=== PATIENT | female | born 2000 | race Caucasian/White ===

== ENCOUNTER 2021-08-02 21:11 | Outpatient (CLI) | payer OTHER | END 2021-08-03 00:16 | disposition home or self-care (01) | LOC: GENOP 21:11 | DX: O99.891 Other specified diseases and conditions complicating pregnancy (principal); R10.2 Pelvic and perineal pain; Z3A.34 34 weeks gestation of pregnancy | CPT/HCPCS: 59025; 81001; 96360; 96361; J7121 ==

== ENCOUNTER 2021-09-06 16:23 | Inpatient (IN) | payer OTHER ==
[~2021-09-06] VITALS: Ht 167.6 cm; Wt 88.9 kg
[2021-09-06 17:04] LABS: HEMOGLOBIN 12.2 gm/dl (12.3-15.3); RED BLOOD COUNT 4.25 M/UL (4.00-5.10); WHITE BLOOD COUNT 8.9 K/UL (4.5-11.0)
[2021-09-07] MEDS ORDERED: IBUPROFEN600 MG PO (21:09)
[2021-09-07] MEDS ORDERED: HYDROCODON-ACE1 EAC4 PO (21:09)
[2021-09-07] MEDS ORDERED: DOCUSATE SODIU100 MG PO (21:09)
[2021-09-08 06:20] LABS: HEMOGLOBIN 11.2 gm/dl (12.3-15.3)
== END 2021-09-09 18:52 | disposition home or self-care (01) | DRG 807 ==
LOC: GENOP 16:23 → OB 18:29
PROVIDERS: Obstetrics & Gynecology; ADMIT Obstetrics & Gynecology
PROC: 10E0XZZ Delivery of Products of Conception, External Approach (ICD-10-PCS; principal; 2021-09-07)
PROC: 0KQM0ZZ Repair Perineum Muscle, Open Approach (ICD-10-PCS; 2021-09-07)
PROC: 4A1HXCZ Monitoring of Products of Conception, Cardiac Rate, External Approach (ICD-10-PCS; 2021-09-07)
PROC: 10907ZC Drainage of Amniotic Fluid, Therapeutic from Products of Conception, Via Natural or Artificial Opening (ICD-10-PCS; 2021-09-07)
DX: O99.824 Streptococcus B carrier state complicating childbirth (principal); Z37.0 Single live birth; O70.1 Second degree perineal laceration during delivery; Z3A.39 39 weeks gestation of pregnancy; Z20.822 Contact with and (suspected) exposure to COVID-19; O99.284 Endocrine, nutritional and metabolic diseases complicating childbirth; E28.2 Polycystic ovarian syndrome
CPT/HCPCS: 36415; 81001; 82800; 85014; 85018; 85025; J2405; J2590